=== PATIENT | female | born 1985 | race Caucasian/White ===

== ENCOUNTER 2016-12-12 05:35 | Inpatient (IN) | payer OTHER ==
[2016-12-12] VITALS (36 sets, daily range): BP systolic 101–164; BP diastolic 46–81; PULSE 59–141; TEMP 98.1–98.6
[~2016-12-12] VITALS: Ht 170.2 cm; Wt 83.2 kg
[~2016-12-12 05:35] MED LIST: NO HOME MEDICATIONS; NORCO 325 MG-51 TAB PO; PREDNISONE20 MG PO
[2016-12-12] MEDS ORDERED: PRENATAL (06:45)
[2016-12-12 10:51] LABS: BASO # 0.1 (0.0-0.2); BASO % 0.3 % (0.0-2.0); EOS # 0.1 (0.0-0.7); EOS % 0.8 % (0-4.0); GRAN # 15.3 (1.4-6.5); GRAN % 82.7 % (42.2-75.2); HEMOGLOBIN 12.5 g/dl (12.5-16.0); LYMPH % 10.9 % (20.0-51.0); MEAN CELL VOLUME 89 fl (80.0-100.0); MEAN CORPUSCULAR HEMOGLOBIN 31 pg (27.0-31.0); MEAN CORPUSCULAR HGB CONC 35 g/dl (33.0-37.0); MEAN PLATELET VOLUME 10.7 fl (7.4-10.4); MONO # 0.8 (0.1-0.6); MONO % 4.5 % (1.7-9.3); PLATELET COUNT 260 K/mm3 (130-400); RED BLOOD COUNT 4.01 M/mm3 (4.10-5.30); REDCELL DISTRIBUTION WIDTH-CV 13.5 % (11.5-14.5); WHITE BLOOD COUNT 18.5 K/mm3 (4.8-10.8)
[2016-12-12 10:52] LABS: HEMATOCRIT 35.8 % (37.0-47.0)
[2016-12-13 04:00] VITALS: PULSE 80; TEMP 98
[2016-12-13 07:50] VITALS: BP 112/62; PULSE 76; TEMP 97.8
[2016-12-13 16:20] VITALS: BP 116/62; PULSE 74; TEMP 98.2
[2016-12-13 19:45] VITALS: BP 94/52; PULSE 81; TEMP 97.6
[2016-12-14 04:00] VITALS: BP 101/54; PULSE 68; TEMP 97.9
[2016-12-14 07:30] VITALS: BP 100/52; PULSE 65; TEMP 98.2
[2016-12-14] MEDS ORDERED: MOTRIN 600600 MG/TAB PO (10:16)
== END 2016-12-14 12:12 | disposition home or self-care (01) | DRG 775 ==
LOC: LDRO 05:35 → LDR 05:40 → LDRO 10:00 → OB 20:30
PROVIDERS: Obstetrics & Gynecology
PROC: 10E0XZZ Delivery of Products of Conception, External Approach (ICD-10-PCS; principal; 2016-12-12)
PROC: 0KQM0ZZ Repair Perineum Muscle, Open Approach (ICD-10-PCS; 2016-12-12)
DX: O69.81X0 Labor and delivery complicated by cord around neck, without compression, not applicable or unspecified (principal); O70.1 Second degree perineal laceration during delivery; Z3A.39 39 weeks gestation of pregnancy; Z37.0 Single live birth
CPT/HCPCS: J2590; J7120

== ENCOUNTER → 2017-01-01 | Outpatient (CLI) | payer OTHER ==
[~2017-01-01] MED LIST changes: +MOTRIN 600600 MG/TAB PO; +PRENATAL
== END ==
LOC: OLC 13:34
DX: Z39.1 Encounter for care and examination of lactating mother (principal); Z71.89 Other specified counseling

== ENCOUNTER 2020-01-27 16:24 | Outpatient (CLI) | payer OTHER ==
[~2020-01-27] VITALS: Ht 170.2 cm; Wt 86.6 kg
--- NOTE | 2020-01-27 16:30 | NUR ---
Pt sent over from [facility] for a NST. Pt was seen for decrease movement over the last 3 days and non reactive in the office. Pt to [facility], explained. Assessment complete. 38.4 weeks gestation, G2L1. VSS. 1650: Roles and evaluating FHR monitor. Order to check cervix. SVE: /-2. Pt denies feeling any contractions. 1730:FHR reactive. Roles here and evaluates FHR and at bedside. Plan of care reviewed with pt, pt states she is feeling more movement now. 1750:DC instructions given, pt verbalizes understanding. No further questions noted. 1755:Pt to personal vehicle.
[2020-01-27] MEDS ORDERED: BENADRYL25 M2 PO (16:43)
== END 2020-01-27 17:55 | disposition home or self-care (01) ==
LOC: LDRO 16:24 → LDR 16:35 → LDRO 17:55 → LDR 17:55
DX: O36.8130 Decreased fetal movements, third trimester, not applicable or unspecified (principal); Z3A.38 38 weeks gestation of pregnancy
CPT/HCPCS: OP

== ENCOUNTER 2020-01-28 12:00 | Outpatient (CLI) | payer OTHER ==
[~2020-01-28] VITALS: Ht 170.2 cm; Wt 86.8 kg
[2020-01-28 10:51] VITALS: BP 118/65; PULSE 90; TEMP 97.7
[~2020-01-28 12:00] MED LIST changes: +BENADRYL25 M2 PO
--- NOTE | 2020-01-28 12:10 | NUR ---
PATIENT TO LR 4. COMPLAINS OF LEAKING OF FLUID. DENIES BLEEDING, DENIES CONTRACTIONS. PATIENT STATES SHE WAS HERE YESTERDAY FOR DECREASED MOVEMENT. PATIENT CHANGED INTO GOWN. ON EFM. VITALS OBTAINED, ASSESMENT COMPLETE. DR RAMON AT BEDSIDE. SVE EXAM AMNISWAB NEGATIVE /-3 AT BEDSIDE
[2020-01-28 12:30] VITALS: BP 118/65; PULSE 90; TEMP 97.7
[2020-01-28 13:00] VITALS: BP 101/55; PULSE 79
[2020-01-28 13:30] VITALS: BP 106/70; PULSE 85
== END 2020-01-28 13:45 | disposition home or self-care (01) ==
LOC: LDRO 12:00
DX: O42.92 Full-term premature rupture of membranes, unspecified as to length of time between rupture and onset of labor (principal); Z3A.38 38 weeks gestation of pregnancy

== ENCOUNTER 2020-01-29 02:38 | Inpatient (IN) | payer OTHER ==
[2020-01-29] VITALS (32 sets, daily range): BP systolic 91–131; BP diastolic 42–81; PULSE 60–116; TEMP 97.8–98.4
[~2020-01-29] VITALS: Ht 170.2 cm; Wt 86.8 kg
--- NOTE | 2020-01-29 02:40 | NUR ---
HERE WITH SPOUSE C/O WORSENING CTX OVER PAST 2 HOURS. EFM SVE. WRITHING IN BED WITH HARD CTX. REQUESTS EPIDURAL VIVIENNE. 0320 DR RAMON NOTIFEIED OF ABOVE
--- NOTE | 2020-01-29 03:20 | NUR ---
0320- Labor admission orders received from Dr. Koenig. Plan of care reviewed with pt and at the bedside. 0330- IV started, labs obtained and LR infusing per order. See EMAR for details. 0340- Pt requesting an epidural. 0342- Pt sitting up on the edge of the bed for epidural placement. 0346- DAVID Bowie at the bedside for placement. Time out done. 0350- SPO2 monitor started. EFM intermittently tracing maternal HR as coorelates with SPO2 monitor. 0358- Test dose given per DAVID Bowie. See anesthesia record for details. 0403- Repositioned pt back to supine position with left wedge. EFM and toco monitors adjusted.
[2020-01-29 03:45] LABS: BASO % 0.2 % (0.0-2.0); EOS # 0.1 (0.0-0.7); EOS % 0.7 % (0-4.0); GRAN # 14.6 (1.4-6.5); GRAN % 78.4 % (42.2-75.2); HEMOGLOBIN 11.8 g/dl (12.5-16.0); LYMPH # 2.4 (1.2-3.4); LYMPH % 12.9 % (20.0-51.0); MEAN CELL VOLUME 89 fl (80.0-100.0); MEAN CORPUSCULAR HEMOGLOBIN 31 pg (27.0-31.0); MEAN CORPUSCULAR HGB CONC 35 g/dl (33.0-37.0); MEAN PLATELET VOLUME 10.5 fl (7.4-10.4); MONO # 1.3 (0.1-0.6); MONO % 6.9 % (1.7-9.3); PLATELET COUNT 257 K/mm3 (130-400); RED BLOOD COUNT 3.84 M/mm3 (4.10-5.30)
--- NOTE | 2020-01-29 08:30 | NUR ---
Roles at bedside. SVE C/+1 per provider. Pt prepped for delivery. Begins pushing with physician. 0857-Delivery of head. 33 second shoulder dystocia. HOB lowered. Debbie performed. Suprapubic pressure performed on pt left side by this RN. Vaginal delivery of . Care of to Deysi Mayers RN. Apgars 8/9. 0903- of placenta. Pitocin bolus infusing per protocol. Fundus firm at umbilicus. Bleeding WNL. Pericare performed. Ice pack applied. Pt updated on POC. Safety reviewed. No questions or concerns at this time. Bed locked in low position. Call light within reach.
[2020-01-30 07:32] VITALS: BP 116/76; PULSE 78; TEMP 98.1
[2020-01-30] MEDS ORDERED: IBU600 MG PO (09:48)
[2020-01-30 14:03] VITALS: BP 122/64; PULSE 78; TEMP 97.8
== END 2020-01-30 14:00 | disposition home or self-care (01) | DRG 807 ==
LOC: LDRO 02:38 → OB 03:20 → LDR 03:20 → OB 11:12
PROVIDERS: ADMIT Obstetrics & Gynecology
PROC: 10E0XZZ Delivery of Products of Conception, External Approach (ICD-10-PCS; principal; 2020-01-29)
PROC: 0KQM0ZZ Repair Perineum Muscle, Open Approach (ICD-10-PCS; 2020-01-29)
PROC: 10907ZC Drainage of Amniotic Fluid, Therapeutic from Products of Conception, Via Natural or Artificial Opening (ICD-10-PCS; 2020-01-29)
DX: O70.1 Second degree perineal laceration during delivery (principal); Z37.0 Single live birth; O71.89 Other specified obstetric trauma; Z3A.38 38 weeks gestation of pregnancy
CPT/HCPCS: J2590; J7120

== ENCOUNTER → 2020-06-01 | Outpatient (CLI) | payer OTHER ==
[~2020-06-01] MED LIST changes: +IBU600 MG PO
== END ==
LOC: COL.RAD
DX: E04.9 Nontoxic goiter, unspecified (principal)